=== PATIENT | female | born 1965 | race Caucasian/White ===

== ENCOUNTER → 2024-02-19 12:55 | Outpatient (REF) | payer OTHER, SELFPAY ==
--- NOTE | 2024-02-19 | HM_ITS ---
* Total monitoring time 3 days. * Underlying rhythm is sinus with an average rate of 94/Min. About 36% of the time, rate > 100/Min. * Rare supraventricular ectopy. * Rare ventricular ectopy. * Patient markers used in association sinus rhythm. * Symptoms in patient diary including lightheadedness, 'turned white', flutter, tightness, nausea correlate with sinus rhythm and mild sinus tachycardia. MTDD
== END ==
LOC: HO.CARD 12:55
PROVIDERS: PCP Nurse Practitioner Gerontology; Visit Provider Psychiatry & Neurology Neurology
DX: R55 Syncope and collapse (principal)
CPT/HCPCS: 93242

== ENCOUNTER → 2024-02-19 13:06 | Outpatient (BNV) | payer OTHER, SELFPAY | PROVIDERS: PCP Nurse Practitioner Gerontology; Visit Provider Internal Medicine | DX: I47.10 Supraventricular tachycardia, unspecified (principal) | CPT/HCPCS: 93244 ==

== ENCOUNTER 2024-04-24 10:01 | Outpatient (REF) | payer OTHER, SELFPAY ==
[2024-05-01 00:23] LABS: Catecholamine,Calc Tot.(E+NE) 44 mcg/g cr (9-74); Creatinine, Random Urine 27 mg/dL (20-275); Dopamine, Random Urine 190 mcg/g cr (40-390); Norepinephrine, Random Urine 44 mcg/g cr (7-65)
== END 2024-04-24 10:02 | disposition home or self-care (01) ==
LOC: HO.LAB 10:01
PROVIDERS: PCP Nurse Practitioner Gerontology; Visit Provider Registered Nurse
DX: M79.7 Fibromyalgia (principal)
CPT/HCPCS: 82384

== ENCOUNTER 2025-01-30 08:49 | Outpatient (AMB) | payer OTHER, SELFPAY ==
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
--- OUTSIDE RECORDS SUMMARY | 2025-01-30 09:06 | XMS_ITS | Clinical Summary ---
Author Organization [facility] Address [address] [place] [address] Phone Care Team Providers Care Nuclear Fuel Processing Technician Name Role Phone Christy Khan NP Primary Care Provider [phone] Allergies Active Allergy Reactions Criticality Noted Date Comments Sulfamethoxazole-Trimeth oprim Palpitations 05/16/2017 Heart racing; swelling of throat Medications acetaminophen (TYLENOL) 325 mg tablet Take 1-2 tablets (325-650 mg total) by mouth every 6 (six) hours if needed (Pain). 1 Active ALPRAZolam (XANAX) 0.5 mg tablet Take 1 tablet (0.5 mg total) by mouth 3 (three) times a day if needed. Active amitriptyline (ELAVIL) 10 mg tablet Take 1 tablet (10 mg total) by mouth 1 (one) time each day if needed. 0 Active amitriptyline (ELAVIL) 25 mg tablet 2 tablets (50 mg total) at bedtime. Active fluticasone propionate (FLONASE) 50 mcg/actuation nasal spray Administer 1 spray into each nostril 2 (two) times a day. 7 Active gabapentin (NEURONTIN) 600 mg tablet Take 1 tablet (600 mg total) by mouth 3 (three) times a day. 0 Active lidocaine (LIDODERM) 5 % patch Place 1 patch on the skin 1 (one) time each day. Apply for no more than 12 hours in any 24 hour period. 7 Active loratadine (CLARITIN) 10 mg tablet Take 1 tablet (10 mg total) by mouth 1 (one) time each day. Active prazosin (MINIPRESS) 1 mg capsule Take 1 capsule (1 mg total) by mouth 1 (one) time each day if needed (Anxiety). 0 Active sucralfate (CARAFATE) 100 mg/mL suspension Take 10 mL (1 g total) by mouth if needed. Active traZODone (DESYREL) 50 mg tablet 0.5-1 tablets (25-50 mg total) 1 (one) time each day. 9 Active meloxicam (MOBIC) 7.5 mg tablet TAKE ONE TABLET BY MOUTH TWICE A DAY AFTER MEALS Active baclofen (LIORESAL) 10 mg tablet Take 1 tablet (10 mg total) by mouth at bedtime as needed for muscle spasms. Active omeprazole (PriLOSEC) [address] capsuleIndicatio ns:Gastroesophag eal reflux disease without esophagitis Take 1 capsule (40 mg total) by mouth 1 (one) time each day. 90 each 1 5 04/12/20 25 Active Active Problems Problem Noted Date Diagnosed Date Incisional hernia, without obstruction or gangre ne 06/25/2024 Raynaud's phenomenon 05/15/2024 Carpal tunnel syndrome, bilateral 11/28/2018 Overview (05/15/2024): L CTR 01/08 Allergic rhinitis 04/20/2018 Depression 04/20/2018 Lumbar spondylosis 04/20/2018 Osteoporosis 04/20/2018 Irritable bowel syndrome 04/20/2018 Overview (05/15/2024): Chronic constipation Rectocele 04/20/2018 Overview (05/15/2024): 09/2016 Defogram: anterior & posterior DDD (degenerative disc disease), cervical 2017 Anxiety 05/16/2017 Chronic headaches 05/16/2017 Fibromyalgia 05/16/2017 GERD (gastroesophageal reflux disease) 7 Panic disorder 05/16/2017 Encounters Date Type Department Care Team Description 01/07/2025 1:30 PM EDT Office Visit General Surgery [address] [address] Keith Fritz MD Incisional hernia, without obstruction or gangrene (Primary Dx) from Last 3 Months Surgical History Surgery Date Site/Laterality Comments OTHER SURGICAL HISTORY PROCEDURE: MO BIOPSY MUSCLE DEEP; COMMENT: left arm OTHER SURGICAL HISTORY PROCEDURE: HISTORY OTHER; COMMENT: sinus surgery OTHER SURGICAL HISTORY PROCEDURE: HISTORY OTHER; COMMENT: hernia repair CARPAL TUNNEL RELEASE 12/2017 Left PROCEDURE: HISTORICAL CARPAL TUNNEL REL CHOLECYSTECTOMY HERNIA REPAIR UMBILICAL HERNIA REPAIR VASCULAR SURGERY COLONOSCOPY UPPER GASTROINTESTINAL ENDOSCOPY Medical History Medical History Date Comments Anxiety 05/16/2017 DX:Anxiety Chronic headaches 05/16/2017 DX:Chronic hea daches GERD (gastroesophageal reflu x disease) 05/16/2017 DX:GERD (gastroesophageal re flux disease) Fibromyalgia 05/16/2017 DX:Fibromyalgia Panic disorder 05/16/2017 DX:Panic disorde r Raynaud's phenomenon DX:Raynaud' s phenomenon Rectocele 04/20/2018 DX:Rectocele; CO MMENT: 09/2016 Defogram: anterior & posterior Allergic rhinitis 04/20/2018 DX:Allergic rh initis Depression 04/20/2018 DX:Depression Lumbar spondylosis 04/20/2018 DX:Lumbar spo ndylosis DDD (degenerative disc disea se), cervical 02/13/2018 DX:DDD (degenerative disc di sease), cervical Osteoporosis 04/20/2018 DX:Osteoporosis Irritable bowel syndrome 04/20/2018 DX:Irri table bowel syndrome; COMMENT: Chronic constipation Awareness under anesthesia Factor V deficiency ([facility] V24, [facility] V28) Family History Medical History Relation Name Comments Arthritis Father hypertension Arthritis Mother Breast cancer Paternal Grandmother Relation Name Status Comments Daughter 1 Daughter 2 Daughter 3 Alive Father Mother Paternal Grandmother Son Alive Social History Tobacco Use Types Packs/Day Years Used Date Smoking Tobacco: Light Smoker Cigarettes 0.2 41.5 Started: 1983 Smokeless Tobacco: Never Tobacco Cessation:Ready to Q uit: Not Asked; Counseling Given: Not Answered Alcohol Use Standard Drinks/Week Comments Yes 2 (1 standard drink = 0.6 oz pur e alcohol) 2 drinks a week Interpersonal Safety Answer Date Record ed Physical Abuse 09/02/2024 Verbal Abuse 09/02/2024 Comments No Sex and Gender Information Value Date Recorded Sex Assigned at Female 07/01/2024 9:21 AM EST Legal Sex Female 2:06 PM EST Gender Identity Female 07/01/2024 9:21 AM EST Sexual Orientation Straight 07/01/2024 9: 21 AM EST Obstetrics History Para Term AB IAB SAB Ectopic Multiple Livin g Live Births 4 Last Filed Vital Signs Vital Sign Reading Time Taken Comments Blood Pressure 123/77 01/07/2025 1:30 PM EDT Pulse 91 01/07/2025 1:30 PM EDT Temperature 36.1 C (96.9 F) 10/08/2024 12:54 PM EDT Respiratory Rate 20 09/02/2024 9:08 AM EST Oxygen Saturation 98% 09/02/2024 9:08 AM EST Inhaled Oxygen Concentration - - Weight 66.2 kg (146 lb) 01/07/2025 1:30 PM EDT Height 161.3 cm (5' 3.5 ) 01/07/2025 1:30 PM EDT Body Mass Index 25.46 01/07/2025 1:30 PM EDT Plan of Treatment Health Maintenance Due Date Last Done Comments Hepatitis A Vaccines (1 of 2 - Risk 2-dose series) 12/18/1986 Hepatitis B Vaccines (1 of 3 - 19+ 3-dose series) 12/18/1986 Zoster Vaccines (1 of 2) 12/18/2017 Cervical Cancer Screening: Pap Smear 01/25/2019 01/26/2016 Cholesterol Screening (Lipid Panel) 06/22/2022 Colorectal Cancer Screening: Colonoscopy 06/22/2022 Depression Screening 06/22/2022 HIV Screening 06/22/2022 Hepatitis C Screening 06/22/2022 Osteoporosis Screening (Bone Density Screening) 06/22/2022 Social Influencers of Health Screening 06/22/2022 COVID-19 Vaccine ( season) 2024 Influenza Vaccine (#1) 2025 04/09/2020 Breast Cancer Screening 07/22/2026 07/22/20 24, 06/05/2023, 05/31/2022, Additional history exists DTaP,Tdap,and Td Vaccines (3 - Td or Tdap) 02/18/2031 02/18/2021, 09/30/2019 Pneumococcal Vaccine: 50+ Years Completed 11/30/2023 HIB Vaccines Aged Out No longer eligi ble based on patient's age to complete this topic HPV Vaccines Aged Out No longer eligi ble based on patient's age to complete this topic IPV Vaccines Aged Out No longer eligi ble based on patient's age to complete this topic MMR Vaccines Aged Out No longer eligi ble based on patient's age to complete this topic Meningococcal ACWY Vaccine Aged Out N o longer eligible based on patient's age to complete this topic Meningococcal B Vaccine Aged Out No l onger eligible based on patient's age to complete this topic RSV Immunization Patients Under 20 months Aged Out No longer eligible based on patient's age to complete this topic Varicella Vaccines Aged Out No longer eligible based on patient's age to complete this topic Medical Devices Implanted Type Area Satellite Television Installer Device Identifier Shelf Expiration Date Model / Serial / Lot Mesh Ventralex St 2.5in Med Ambler W/Strap - Sna - [id number] Implanted:Qty: 1 on 09/02/2024 by Keith Fritz MD at [facility] Surgical Mesh Sling Implants N/A: Abdomen CR BARD - DAVOL DIV 12/18/2025 [id number] / NA / [id number] Procedures Procedure Name Priority Date/Time Associated Diagnosis Comments MG MAMMO DIGITAL SCREENING W LUCIEN BILAT Routine 07/22/2024 10:08 AM EST Encounter for screening mammogram for breast cancer PAP SMEAR Routine 01/26/2016 from Last 3 Months or Most Recently Relevant to Health Maintenance Results * MG Mammo Digital Screening w Lucien bilat (07/22/2024 10:08 AM EST) Anatomical Region Laterality Modality Breast Bilateral Mammography 07/22/2024 10:2 8 AM EST Impressions 07/22/2024 10:35 AM EST No mammographic evidence of malignancy. A negative mammogram in the presence of a clinically suspicious palpable abnormality does not preclude the possibility of malignancy or alter the indications for biopsy. PQRI CPT II 3341F Code 64794, 13327 PQRI 225 CPT II 7025F TISSUE DENSITY: There are scattered areas of fibroglandular density. (BI-RADS category B) IMPRESSION: Benign. BI-RADS CATEGORY: 1 - NEGATIVE RECOMMENDATION: Screening bilateral mammogram is recommended in 1 year. Mammo Location: [facility], [address] [place] [id number] -------- FINAL REPORT -------- Dictated By: Claudy Inman Dictated Date: 07/22/2024 10:28 ET Assigned Physician: Claudy Inman Reviewed and Electronically Signed By: Claudy Inman Signed Date: 07/22/2024 10:35 ET Workstation ID: [id number] Transcribed By: Self Edit Transcribed Date: 07/22/2024 10:28 ET Narrative 07/22/2024 10:35 AM EST CLINICAL: The patient is a 58 years Female presenting for routine screening mammography. COMPARISON: Most recently 06/03/2023 and most remotely 07/14/2017. TECHNIQUE: Full-field digital mammography of the breasts bilaterally consisting of tomosynthesis in MLO and CC projection is performed in the [employer] 2000-D unit. Computer aided detection utilizing the iCAD system was utilized. FINDINGS: The breasts are again seen to be composed of a combination of fatty and fibroglandular elements. There is no cluster of microcalcifications, mass, or area of architectural distortion. There is no skin thickening or nipple retraction. Procedure Note Claudy Inman MD - 07/22/2024 CLINICAL: The patient is a 58 years Female presenting for routinescreening mammography. COMPARISON: Most recently 06/03/2023 and most remotely 07/14/2017. TECHNIQUE: Full-field digital mammography of the breasts bilaterallyconsisting of tomosynthesis in MLO and CC projection is performed in [email or web address] 2000-D unit. Computer aided detection utilizing the iCADsystem was utilized. FINDINGS: The breasts are again seen to be composed of a combination offatty and fibroglandular elements. There is no cluster ofmicrocalcifications, mass, or area of architectural distortion. There isno skin thickening or nipple retraction. IMPRESSION: No mammographic evidence of malignancy. A negative mammogram in the presence of a clinically suspicious palpableabnormality does not preclude the possibility of malignancy or alter theindications for biopsy. PQRI CPT II 3341F Code 79825, 58349 PQRI 225 CPT II 7025F TISSUE DENSITY: There are scattered areas of fibroglandular density.(BI-RADS category B) IMPRESSION: Benign. BI-RADS CATEGORY: 1 - NEGATIVE RECOMMENDATION: Screening bilateral mammogram is recommended in 1 year. Mammo Location: [facility], [address] [place] [id number] -------- FINAL REPORT -------- Dictated By: Claudy Inman Dictated Date: 07/22/2024 10:28 ET Assigned Physician: Claudy Inman Reviewed and Electronically Signed By: Claudy Inman Signed Date: 07/22/2024 10:35 ET Workstation ID: [id number] Transcribed By: Self Edit Transcribed Date: 07/22/2024 10:28 ET us Self Referral Sppl IMG BI PROCEDURES Final Resul t * Pap Smear (01/26/2016) Pap smear No interpretation , abstracted Historical Provider MD HEALTH MAINTENANCE Final Result from Last 3 Months or Most Recently Relevant to Health Maintenance Insurance [facility] MEDICAID ADVANTAGE Advance Directives * Full Code - Default (Latest Code Status on File) Date Activated Date Inactivated Comments 09/02/2024 6:10 AM 09/02/2024 12:37 PM This is ord er is used when code status has not been discussed with the patient, or code status is otherwise unknown/unconfirmed To update the patient's code status, place a code status order. Do not modify or discontinue any currently active code status orders. Care Teams Nuclear Fuel Processing Technician Relationship Specialty Start Date End Date Christy Khan NP [address] [facility] [place] [address] PCP - General Internal Medicine 07/01/24
--- OUTSIDE RECORDS SUMMARY | 2025-01-30 09:06 | XMS_ITS | Data Portability ---
Author Organization [place] - [facility], Allergy Address [address] [address] Care Team Providers Care Turf Keeper Name Role Phone HUSSEINDELVISIE Primary Care Provider [phone] STEPHANE BAKER Primary Care Provider [phone] Assessment Encounter Date Assessment Date Assessment LastModified by Organization Details LastModified Time 08/02/2024 08/02/2024 Patient with remote history of sinus surgery [place] [address] Raya. She is seen for an opinion regarding recurrent acute sinus infections every 3 months. She is followed by Dr. Byrne and has been undergoing immunologic workup. She had low pneumococcal titers and was vaccinated in the fall. We are trying to find her follow-up titers. She did receive immunotherapy but this was complicated by local reactions. Examination shows patent sinus cavities without evidence of purulent drainage or polypoid swelling. At this point, I feel we need to sort out whether she does have underlying immune dysfunction as her sinus cavities are clear and there is no swelling. I have suggested saline nasal lavage with distilled water using a powered system. We can consider adding a topical steroid if this is not effective, but presently there is no edema. She will contact me in a couple of months to see how things are going with the rinses [email or web address] Not available 08/02/2024 09:14:09 Plan of Treatment Reminders Order Date Submit Date Provider Last Modified By Organization Details Last Modified Time Details Appointments None recorded. Lab unlisted lab - pneumococca l Ab (23 serotype) 2024 025 SABINE [facility] (Centralized Electronic Ordering - All Locations), Patient Can Go To The Location Of Their Choice, [address] 02:31:17 Referral None recorded. Procedures None recorded. Surgeries None recorded. Imaging None recorded. Medication Orders None recorded. Patient TargetsNo targets recorded. Patient InstructionsNo instructions recorded. Reason for Referral None Reported. Results Created Date Observation Date Name Description Value Unit Range Abnormal Flag Note LastModifiedBy Organization Detail LastModifiedTime 08/05/1908/09/2024 PNEUM OCOCC AL AB (23 SEROT YPE) pneumo Ab type 1* 0.1 ug/mL >1.3 below low normal Not Available [facility] [address] [place], [address], 08/09/2024 02:31:08/05/1908/09/2024 PNEUM OCOCC AL AB (23 SEROT YPE) pneumo Ab type 3* <0.1 ug/mL >1.3 below low normal Not Available [facility] [address] [place], [address], 08/09/2024 02:31:17 08/05/1908/09/2024 PNEUM OCOCC AL AB (23 SEROT YPE) pneumo Ab type 4* 0.2 ug/mL >1.3 below low normal Not Available [facility] [address] [place], [address], 08/09/2024 02:31:17 08/05/1908/09/2024 PNEUM OCOCC AL AB (23 SEROT YPE) pneumo Ab type 8* 7.8 ug/mL >1.3 Not Available [facility] [address] [place], [address], 08/09/2024 02:31:08/05/1908/09/2024 PNEUM OCOCC AL AB (23 SEROT YPE) pneumo Ab type 9 (9N)* <0.1 ug/mL >1.3 below low normal Not Available [facility] [address] [place], [address], 08/09/2024 02:31:17 08/05/19 25 08/09/2024 PNEUM OCOCC AL AB (23 SEROT YPE) pneumo Ab type 12 (12F)* <0.1 ug/mL >1.3 below low normal Not Available [facility] [place], [address], 08/09/2024 02:31:17 08/05/19 25 08/09/2024 PNEUM OCOCC AL AB (23 SEROT YPE) pneumo Ab type 14* 10.4 ug/mL >1.3 Not Available [facility] [place], [address], 08/09/2024 02:31:17 08/05/1908/09/2024 PNEUM OCOCC AL AB (23 SEROT YPE) pneumo Ab type 17 (17F)* 0.2 ug/mL >1.3 below low normal Not Available [facility] [place], [address], 08/09/2024 02:31:17 08/05/19 25 08/09/2024 PNEUM OCOCC AL AB (23 SEROT YPE) pneumo Ab type 19 (19F)* 1.8 ug/mL >1.3 Not Available [facility] [place], [address], 08/09/2024 02:31:17 08/05/19 25 08/09/2024 PNEUM OCOCC AL AB (23 SEROT YPE) pneumo Ab type 2* 0.3 ug/mL >1.3 below low normal Not Available [facility] [place], [address], 08/09/2024 02:31:17 08/05/19 25 08/09/2024 PNEUM OCOCC AL AB (23 SEROT YPE) pneumo Ab type 20* 1.2 ug/mL >1.3 below low normal Not Available [facility] [place], [address], 08/09/2024 02:31:17 08/05/19 25 08/09/2024 PNEUM OCOCC AL AB (23 SEROT YPE) pneumo Ab type 22 (22F)* 0.1 ug/mL >1.3 below low normal Not Available [facility] [address] [place], [address], 08/09/2024 02:31:17 08/05/19 25 08/09/2024 PNEUM OCOCC AL AB (23 SEROT YPE) pneumo Ab type 23 (23F)* 10.5 ug/mL >1.3 Not Available [facility] [address] [place], [address], 08/09/2024 02:31:17 08/05/19 25 08/09/2024 PNEUM OCOCC AL AB (23 SEROT YPE) pneumo Ab type 26 (6B)* 2.0 ug/mL >1.3 Not Available [facility] [address] [place], [address], 08/09/2024 02:31:17 08/05/19 25 08/09/2024 PNEUM OCOCC AL AB (23 SEROT YPE) pneumo Ab type 34 (10A)* 0.3 ug/mL >1.3 below low normal Not Available [facility] [address] [place], [address], 08/09/2024 02:31:17 08/05/19 25 08/09/2024 PNEUM OCOCC AL AB (23 SEROT YPE) pneumo Ab type 43 (11A)* 0.6 ug/mL >1.3 below low normal Not Available [facility] [address] [place], [address], 08/09/2024 02:31:17 08/05/19 25 08/09/2024 PNEUM OCOCC AL AB (23 SEROT YPE) pneumo Ab type 5* 0.7 ug/mL >1.3 below low normal Not Available [facility] [place], [address], 08/09/2024 02:31:17 08/05/1908/09/2024 PNEUM OCOCC AL AB (23 SEROT YPE) pneumo Ab type 51 (7F)* 9.0 ug/mL >1.3 Not Available [facility] [place], [address], 08/09/2024 02:31:17 08/05/1908/09/2024 PNEUM OCOCC AL AB (23 SEROT YPE) pneumo Ab type 54 (15B)* 5.5 ug/mL >1.3 Not Available [facility] [place], [address], 08/09/2024 02:31:17 08/05/1908/09/2024 PNEUM OCOCC AL AB (23 SEROT YPE) pneumo Ab type 56 (18C)* 1.8 ug/mL >1.3 Not Available [facility] [place], [address], 08/09/2024 02:31:17 08/05/19 25 08/09/2024 PNEUM OCOCC AL AB (23 SEROT YPE) pneumo Ab type 57 (19A)* 1.9 ug/mL >1.3 Not Available [facility] [place], [address], 08/09/2024 02:31:17 08/05/1908/09/2024 PNEUM OCOCC AL AB (23 SEROT YPE) pneumo Ab type 68 (9V)* <0.1 ug/mL >1.3 below low normal Not Available [facility] [place], [address], 08/09/2024 02:31:17 08/05/19 25 08/09/2024 PNEUM OCOCC AL AB (23 SEROT YPE) pneumo Ab type 70 (33F)* 0.8 ug/mL >1.3 below low normal *This test was devel oped and its perfo rmanc e consuelo cteri stics deter mined by [employer] [facility]. It has not been clear ed or appro anais by the U.S. Food and Drug Admin istra tion. FLAG Inter preta tion: A = Abnor mal, H = High, L = Low Not Available [facility] [address] [place], [address], 08/09/2024 02:31:17 10/30/1911/01/2024 PNEUM OCOCC AL AB (23 SEROT YPE) pneumo Ab type 1* 0.1 ug/mL >1.3 below low normal Not Available [facility] [address] [place], [address], 11/01/2024 22:30:00 10/30/19 25 11/01/2024 PNEUM OCOCC AL AB (23 SEROT YPE) pneumo Ab type 3* <0.1 ug/mL >1.3 below low normal Not Available [facility] [address] [place], [address], 11/01/2024 22:30:00 10/30/19 25 11/01/2024 PNEUM OCOCC AL AB (23 SEROT YPE) pneumo Ab type 4* 0.2 ug/mL >1.3 below low normal Not Available [facility] [address] [place], [address], 11/01/2024 22:30:00 10/30/1911/01/2024 PNEUM OCOCC AL AB (23 SEROT YPE) pneumo Ab type 8* 9.3 ug/mL >1.3 Not Available [facility] [address] [place], [address], 11/01/2024 22:30:00 10/30/19 25 11/01/2024 PNEUM OCOCC AL AB (23 SEROT YPE) pneumo Ab type 9 (9N)* <0.1 ug/mL >1.3 below low normal Not Available [facility] [place], [address], 11/01/2024 22:30:00 10/30/19 25 11/01/2024 PNEUM OCOCC AL AB (23 SEROT YPE) pneumo Ab type 12 (12F)* <0.1 ug/mL >1.3 below low normal Not Available [facility] [place], [address], 11/01/2024 22:30:00 10/30/19 25 11/01/2024 PNEUM OCOCC AL AB (23 SEROT YPE) pneumo Ab type 14* 12.6 ug/mL >1.3 Not Available [facility] [place], [address], 11/01/2024 22:30:00 10/30/19 25 11/01/2024 PNEUM OCOCC AL AB (23 SEROT YPE) pneumo Ab type 17 (17F)* <0.1 ug/mL >1.3 below low normal Not Available [facility] [place], [address], 11/01/2024 22:30:00 10/30/19 25 11/01/2024 PNEUM OCOCC AL AB (23 SEROT YPE) pneumo Ab type 19 (19F)* 2.5 ug/mL >1.3 Not Available [facility] [place], [address], 11/01/2024 22:30:00 10/30/19 25 11/01/2024 PNEUM OCOCC AL AB (23 SEROT YPE) pneumo Ab type 2* <0.2 ug/mL >1.3 below low normal Not Available [facility] [place], [address], 11/01/2024 22:30:00 10/30/19 25 11/01/2024 PNEUM OCOCC AL AB (23 SEROT YPE) pneumo Ab type 20* 1.8 ug/mL >1.3 Not Available [facility] [place], [address], 11/01/2024 22:30:00 10/30/19 25 11/01/2024 PNEUM OCOCC AL AB (23 SEROT YPE) pneumo Ab type 22 (22F)* <0.1 ug/mL >1.3 below low normal Not Available [facility] [address] [place] [address] [place], [address], 11/01/2024 22:30:00 10/30/19 25 11/01/2024 PNEUM OCOCC AL AB (23 SEROT YPE) pneumo Ab type 23 (23F)* 10.0 ug/mL >1.3 Not Available [facility] [place], [address], 11/01/2024 22:30:00 10/30/19 25 11/01/2024 PNEUM OCOCC AL AB (23 SEROT YPE) pneumo Ab type 26 (6B)* 2.1 ug/mL >1.3 Not Available [facility] [address] [place] [address] [place], [address], 11/01/2024 22:30:00 10/30/19 25 11/01/2024 PNEUM OCOCC AL AB (23 SEROT YPE) pneumo Ab type 34 (10A)* 0.2 ug/mL >1.3 below low normal Not Available [facility] [address] [place] [address] [place], [address], 11/01/2024 22:30:00 10/30/19 25 11/01/2024 PNEUM OCOCC AL AB (23 SEROT YPE) pneumo Ab type 43 (11A)* 0.5 ug/mL >1.3 below low normal Not Available [facility] [address] [place], [address], 11/01/2024 22:30:00 10/30/1911/01/2024 PNEUM OCOCC AL AB (23 SEROT YPE) pneumo Ab type 5* 0.7 ug/mL >1.3 below low normal Not Available [facility] [address] [place], [address], 11/01/2024 22:30:00 10/30/19 25 11/01/2024 PNEUM OCOCC AL AB (23 SEROT YPE) pneumo Ab type 51 (7F)* 8.2 ug/mL >1.3 Not Available [facility] [address] [place], [address], 11/01/2024 22:30:00 10/30/19 25 11/01/2024 PNEUM OCOCC AL AB (23 SEROT YPE) pneumo Ab type 54 (15B)* 7.0 ug/mL >1.3 Not Available [facility] [address] [place], [address], 11/01/2024 22:30:00 10/30/19 25 11/01/2024 PNEUM OCOCC AL AB (23 SEROT YPE) pneumo Ab type 56 (18C)* 1.9 ug/mL >1.3 Not Available [facility] [address] [place], [address], 11/01/2024 22:30:00 10/30/19 25 11/01/2024 PNEUM OCOCC AL AB (23 SEROT YPE) pneumo Ab type 57 (19A)* 2.2 ug/mL >1.3 Not Available [facility] [address] [place], [address], 11/01/2024 22:30:00 10/30/19 25 11/01/2024 PNEUM OCOCC AL AB (23 SEROT YPE) pneumo Ab type 68 (9V)* <0.1 ug/mL >1.3 below low normal Not Available [facility] [address] [place], [address], 11/01/2024 22:30:00 10/30/19 25 11/01/2024 PNEUM OCOCC AL AB (23 SEROT YPE) pneumo Ab type 70 (33F)* 0.9 ug/mL >1.3 below low normal *This test was devel oped and its perfo rmanc e consuelo cteri stics deter mined by [employer] [facility]. It has not been clear ed or appro anais by the U.S. Food and Drug Admin istra tion. FLAG Inter preta tion: A = Abnor mal, H = High, L = Low Not Available [facility] [address] [place], [address], 11/01/2024 22:30:00 Result Notes None recorded. Problems Name Problem SNOMED Code Status Onset Date Resolution Date Notes Provider Name and Address Organization Details Recorded Time Acute sinusitis 73113712 Active 2020 Acute sinusitis, unspecifie d; Note: Date Diagnosed: 04/28/2021 9:22 AM (J01.90) Not Available [facility] 4 02:30:30 Dysphagia 77310379 Active 2013 Dysphagia; CMS Risk: low risk [facility] Treatment: establishe d problem (to examiner): stable or improved N ote: Date Diagnosed: 05/15/2014 11:31 AM (787.20) Not Available [facility] 4 02:30:36 Tobacco user 774379796 Active 2017 Tobacco use; Note: Date Diagnosed: 06/20/2018 9:50 AM (Z72.0) Not Available [facility] 4 02:30:29 Disorder of nasal sinus 4213031 Active 2017 Other specified disorders of nose and nasal sinuses; Note: Date Diagnosed: 06/20/2018 9:49 AM (J34.89) Not Available [facility] 4 02:30:34 Disorder of the nose 99999216 Active 2017 Other specified disorders of nose and nasal sinuses; Note: Date Diagnosed: 06/20/2018 9:49 AM (J34.89) Not Available [facility] 4 02:30:34 Allergic rhinitis 72955266 Active 2017 Allergic rhinitis: Due to other allergen; Note: Date Diagnosed: 06/02/2014 11:25 AM (477.8) ; Start Date : 06/02/2014 Allergic Rhinitis; CMS Risk: low risk [facility] Treatment: establishe d problem (to examiner): stable or improved N ote: Date Diagnosed: 05/15/2014 11:31 AM (477.9) ; Start Date : 05/15/2014 Perennial allergic rhinitis; Note: Date Diagnosed: 06/20/2018 9:49 AM (J30.89) Not Available [facility] 4 02:30:45 Chronic sinusitis 93613065 Active 2024 JUDITH HENLEY MD [address] [place] [address],[place] [address], [place], [address] , [facility] 5 09:00:49 Immunodef iciency disorder 505856514 Active 2024 JUDITH HENLEY MD [address] [place] [address],[place] [address], [place], [address] , [place] - [facility] 5 10:29:53 Problem Notes None recorded. Procedures Surgical History Date Name Laterality Status Provider Name and Address Organization Details Recorded Time 08/02/19 25 JMSNasal/Sinus Endoscopy-PRIOR surgical cavities completed JUDITH FIGUEROA MD [address] [place] [address],[place] [address], [place], [address], [place] - [facility] 08/02/2024 09:00:44 Carpal tunnel surgery completed Clary Alex [place] - [facility] 08/02/2024 08:39:27 cholecystectomy completed Clary Alex [place] - [facility] 08/02/2024 08:39:33 hernia repair completed Clary Alex [place] - [facility] 08/02/2024 08:39:39 nasal polypectomy completed Clary Alex [place] - [facility] 08/02/2024 08:39:54 nasal septoplasty completed Clary Alex [place] - [facility] 08/02/2024 08:40:02 Imaging Results None recorded. Procedure Notes None recorded. Medical Equipment None Reported. Allergies Allergen ID Allergen Name Allergen Category Reaction Reaction Severity Criticality Documentation Date Start Date Code Code System Note Provider Name and Address Organization Details Recorded Time 39178 Bactrim medicatio n other Not available Not available 12/05/2023 37356 9 RxNorm React ion: unkno wn, unspe cifie d;; Not Available [facility] 4 01:02:55 Medications Name Sig Start Date Stop Date Status Note LastModified by Organization Details LastModified Time prednison e 10 mg tablet TAKE THREE TABLETS BY MOUTH EVERY DAY FOR 2 DAYS, THEN TAKE TWO TABLETS BY MOUTH EVERY DAY FOR 2 DAYS, THEN TAKE ONE TABLET BY MOUTH EVERY D 08/02 completed Not Available Not Available Not Available gabapenti n 600 mg tablet TAKE ONE TABLET BY MOUTH THREE TIMES A DAY active Not Available Not Available No t Available trazodone 50 mg tablet TAKE ONE-HALF TO ONE TABLET BY MOUTH AT BEDTIME NEEDED FOR SLEEP active Not Available Not Available No t Available fluconazo le 150 mg tablet TAKE ONE TABLET BY MOUTH TODAY. IF SYMPTOMS CONTINUE , REPEAT THE DOSE IN 48-72 HOURS active Not Available Not Available No t Available prazosin 1 mg capsule TAKE ONE TO TWO CAPSULES BY MOUTH AT BEDTIME NEEDED active Not Available Not Available No t Available sucralfat e 100 mg/mL oral suspensio n TAKE 2 TEASPOON SFUL 10ML) BY MOUTH FOUR TIMES A DAY NEEDED active Not Available Not Available No t Available prednison e 20 mg tablet TAKE TWO TABLETS BY MOUTH EVERY DAY FOR 3 DAYS, THEN 1 TABLET FOR 3 DAYS, THEN 1/2 HALF) A TABLET FOR 4 DAYS 08/02 completed Not Available Not Available Not Available clobetaso l 0.05 % topical cream APPLY TO PSORIASI S ON ARMS, TRUNK, LEGS TWO TIMES A DAY NEEDED FOR FLARES - DO NOT USE ON FACE, AXILLAE, OR GROIN 08/02 completed Not Available Not Available Not Available fexofenad ine 180 mg tablet TAKE ONE TABLET BY MOUTH EVERY DAY NEEDED active Not Available Not Available No t Available omeprazol e 40 mg capsule,d elayed release TAKE ONE CAPSULE BY MOUTH EVERY DAY active Not Available Not Available No t Available amitripty line 50 mg tablet TAKE ONE TABLET BY MOUTH DAILY AT BEDTIME active Not Available Not Available No t Available meloxicam 7.5 mg tablet TAKE ONE TABLET BY MOUTH TWICE A DAY AFTER MEALS active Not Available Not Available No t Available alprazola m 0.5 mg tablet TAKE ONE TABLET BY MOUTH THREE TIMES A DAY NEEDED active Not Available Not Available No t Available amitripty line 25 mg tablet TAKE TWO TABLETS BY MOUTH EVERY DAY 08/02 completed Not Available Not Available Not Available dicyclomi ne 20 mg tablet TAKE ONE TABLET BY MOUTH THREE TIMES A DAY BEFORE MEALS FOR IBS 08/02 completed Not Available Not Available Not Available amitripty line 10 mg tablet TAKE ONE TABLET BY MOUTH EVERY MORNING 08/02 completed Not Available Not Available Not Available baclofen 10 mg tablet TAKE ONE-HALF TABLET BY MOUTH THREE TIMES A DAY NEEDED active Not Available Not Available No t Available clotrimaz ole-betam ethasone 1 %-0.05 % topical cream APPLY TOPICALL Y TWO TIMES A DAY active Not Available Not Available No t Available triamcino lone acetonide 55 mcg nasal spray aerosol INHALE ONE TO TWO SPRAYS IN THE AFFECTED NOSTRIL EVERY DAY 08/02 completed Not Available Not Available Not Available lidocaine 5 % topical patch APPLY ONE PATCH EXTERNAL LY EVERY DAY. LEAVE ON FOR 12 HOURS THEN REMOVE FOR 12 HOURS active Not Available Not Available No t Available gabapenti n 300 mg capsule 08/02 completed Medicati on ID: [id number] Dur ation Value: 30 Brand Name: gabapent in Send Method: E-Prescr ibed Sub s Allowed: subs OK Medic ationGen ericName : gabapent in Not Available Not Available Not Available epinephri ne 0.3 mg/0.3 mL injection , auto-inje ctor USE DIRECTED FOR ANAPHYLA XIS THEN CALL 911 active Not Available Not Available No t Available estradiol 0.01% (0.1 mg/gram) vaginal cream USE 1 GRAM EVERY NIGHT FOR 2 WEEKS, THEN USE TWICE PER WEEK AFTERWAR DS 08/02 completed Not Available Not Available Not Available fluticaso ne propionat e 50 mcg/actua tion nasal spray,adolfo pension USE 1 SPRAY IN EACH NOSTRIL ONCE A DAY active Not Available Not Available No t Available doxycycli ne hyclate 100 mg tablet TAKE ONE TABLET BY MOUTH TWICE A DAY X 10 DAYS 08/02 completed Not Available Not Available Not Available ipratropi um bromide 21 mcg (0.03 %) nasal spray USE 1-2 SPRAYS IN EACH NOSTRIL THREE TIMES A DAY NEEDED FOR RUNNY NOSE active Not Available Not Available No t Available loratadin e 10 mg tablet TAKE ONE TABLET BY MOUTH EVERY DAY active Not Available Not Available No t Available amoxicill in 875 mg-potass ium clavulana te 125 mg tablet TAKE ONE TABLET BY MOUTH TWICE A DAY FOR 10 DAYS active Not Available Not Available No t Available diclofena c 1 % topical gel APPLY 3 GRAMS TOPICALL Y FOUR TIMES A DAY TO LEFT WRIST NEEDED FOR PAIN active Not Available Not Available No t Available diflupred corrie 0.05 % eye drops INSTILL 1 DROP INTO BOTH EYES FOUR TIMES A DAY FOR 4 DAYS AFTER LASER, THEN STOP active Not Available Not Available No t Available Vtama 1 % topical cream APPLY TO PSORIASI S ONCE DAILY active Not Available Not Available No t Available Vitals Date Recorded Body height Body mass index (BMI) Body weight Provider Name and Address Organization Details Last Updated DateTime 08/02/2024 162.56 cm 24 kg/m2 95286.93 g Chava Hanson [facility] 08/02/2024 09:16:22 Social History None recorded. Functional Status None recorded. Mental Status None recorded. Family History Nothing Reported. Medical History Condition Response Allergies/Hayfever Y Anemia Y Arthritis Y Anxiety Y Depression Y GERD/Reflux Y Gynecological HistoryNo gynecological history recorded. Obstetrics History GPAL:G 0 P 0 0 0 0 Past Encounters Encounter ID Performer Location Encounter Start Date Encounter Closed Date Diagnosis/Indication Diagnosis SNOMED-CT Code Diagnosis ICD10 Code Diagnosis Note [id number] JUDITH HENLEY MD [facility] [address] [address] 08/02/2024 08:32:47 08/02/2024 09:15:58 Chronic sinusitis 14888350 J32.9 Allergic rhinitis 682714 04 J30.9 Health Concerns Section Related Observation LastModified by Organization Detai ls LastModified Time None Recorded Concern Status LastModified by Organization Details LastModified Time None Recorded Advance Directives Directive None Recorded Payers Insurance Date Sequence Insurance Name Policy Number Policy Lassiter Covered Member ID Lassitre Member ID Guarantor Name 08/16/2024 1 [facility] (MEDICAID HMO) [id number] Anderson Ceja [id number] Anderson Ceja Notes Date Note Type Note Provider Name and Address Organization Details Recorded Time 08/02/2024 text/html Hx of AR and recurrent sinus infections every 3 months. SCIT limited by local reactions. Followed by Dr Byrne. Had immune work up reportedly she had low pneumococcal titers and had the Prevnar vaccine. However, she does not have the results of her follow-up titers and was told by the allergy office that the results were lostPrior surgery [address] Raya. She reports her episodes of sinusitis are manifested by severe left-sided facial pain and pressure and then she gets colored discharge with an odor. She had another episode earlier this week and is now on antibiotics. No asthma or ASA allergy. She is using saline and fluticasone nasal spray regularly. JUDITH FIGUEROA MD [address] [place] [address], [phone], [place] - [facility] 08/02/2024 16:52:56 OBGyn Episode No OBEpisode recorded.
== END 2025-01-30 09:47 | disposition home or self-care (01) ==
LOC: HO.HSM 08:49
PROVIDERS: PCP Nurse Practitioner Gerontology; Referring Provider Nurse Practitioner Gerontology; Visit Provider Registered Nurse
DX: M79.7 Fibromyalgia (principal); F41.9 Anxiety disorder, unspecified; G44.209 Tension-type headache, unspecified, not intractable; R55 Syncope and collapse; R25.1 Tremor, unspecified; M51.26 Other intervertebral disc displacement, lumbar region
CPT/HCPCS: 99214

== ENCOUNTER → 2025-01-30 08:49 | Outpatient (BNVA) | payer OTHER, SELFPAY | PROVIDERS: PCP Nurse Practitioner Gerontology; Referring Provider Nurse Practitioner Gerontology; Visit Provider Registered Nurse | DX: M79.7 Fibromyalgia (principal); F41.9 Anxiety disorder, unspecified; G44.209 Tension-type headache, unspecified, not intractable; R55 Syncope and collapse; R25.1 Tremor, unspecified; M51.26 Other intervertebral disc displacement, lumbar region | CPT/HCPCS: 99212 ==